=== PATIENT | male | born 1955 | race Caucasian/White ===

== ENCOUNTER 2018-01-07 22:53 | Inpatient (IN) ==
[2018-01-08] MEDS ORDERED: MORPHINE 4 MG/1 ML VIAL IV PRN (02:00)
[2018-01-08] MEDS ORDERED: ONDANSETRON 4 MG/2 ML VIAL IV PRN ×2 (02:00→09:40)
[2018-01-08] MEDS ORDERED: INSULIN REGULAR 100 UNIT/ML SUBCUT SCH (02:28)
[2018-01-08] MEDS ORDERED: DEXTROSE 50% 25 GM/50 ML VIAL IV PRN (02:35)
[2018-01-08] MEDS ORDERED: GLUCAGON 1 MG VIAL IM PRN (02:35)
[2018-01-08] MEDS: SODIUM CHLORIDE 0.9% 1,000 ML IV SCH ×3 (03:07→21:06)
[2018-01-08] MEDS: INSULIN REGULAR 100 UNIT/ML SUBCUT SCH ×5 (03:13→21:06)
[2018-01-08 03:21] LABS: Basophils # 0.1 10*3/uL (0.0-0.2); Basophils % 0.6 % (0.0-0.8); Eosinophils # 0.1 10*3/uL (0.0-0.87); Eosinophils % 0.7 % (0.00-10.9); Hematocrit 33.5 VOL% (42.0-52.0); Hemoglobin 11.4 GM/DL (14.0-18.0); Immature Granulocytes % 0.4 %; Immature Granulocytes Absolute 0.07 #; Lymphocytes # 2.4 10*3/uL (1.4-4.0); Lymphocytes % 14.7 % (21.2-54.2); Mean Corpuscular Hemoglobin 28 PG (27-34); Mean Corpuscular Volume 81.7 FL (87-102); Mean Platelet Volume 9.3 FL (9.6-12.0); Monocytes # 1.3 10*3/uL (0.11-0.8); Monocytes % 7.7 % (1.7-12.7); Neutrophils # 12.4 10*3/uL (1.4-7.4); Neutrophils % 75.9 % (38.7-73.9); Platelet Count 515 T/CUMM (130-400); Red Cell Distribution Width 13.1 % (9.3-17.3); White Blood Count 16.3 T/CUMM (4-12)
[2018-01-08 03:39] LABS: Albumin 2.5 G/DL (3.4-5.0); Calcium 9.2 MG/DL (8.5-10.1); Osmolality,Calculated 273.8 MOS/KG (273-304); Potassium 4.1 MMOL/L (3.5-5.1)
[2018-01-08 03:50] LABS: Calcium 8.9 MG/DL (8.5-10.1); Osmolality,Calculated 274.7 MOS/KG (273-304); Potassium 3.7 MMOL/L (3.5-5.1)
[2018-01-08] MEDS ORDERED: VANCOMYCIN INJ 1,000 MG in SODIUM CHLORIDE 0.9% 250 ML IV ONE (04:00)
[2018-01-08] MEDS ORDERED: MAGNESIUM SULF RIDER 2 GM in PREMIX 1 EACH IV ONE (07:32)
[2018-01-08 09:00] LABS: Alanine Aminotransferase 10 U/L (16-61); Albumin 2.4 G/DL (3.4-5.0); Alkaline Phosphatase 102 U/L (45-117); Aspartate Amino Transferase 4 U/L (0-37); Bilirubin,Total < 0.39 MG/DL (0.2-1.0); Blood Urea Nitrogen 22 MG/DL (7-18); Calcium 8.9 MG/DL (8.5-10.1); Glucose 133 MG/DL (74-106); Osmolality,Calculated 272.2 MOS/KG (273-304); Potassium 3.8 MMOL/L (3.5-5.1); Sodium 134 MMOL/L (136-145); Total Protein 7.3 G/DL (6.4-8.3)
[2018-01-08] MEDS ORDERED: PANTOPRAZOLE 40 MG TABLET PO SCH (09:00)
[2018-01-08 09:30] LABS: Apearance,Urine CLEAR (Clear); Bilirubin,Urine Negative (Negative); Blood, Urine Negative (Negative); Glucose,Urine (UA) >=500 mg/dL (Negative); Hyaline Casts,Urine 1 /LPF (0-3); Ketones,Urine Negative (Negative); Mucus,Urine Occasional /LPF (Occasional); Nitrite,Urine Negative (Negative); Protein,Urine 30 MG/DL; RBC,Urine <1 /HPF (0-4); Urine Color Yellow (Yellow); Urine Specific Gravity 1.015 (1.001-1.035); Urine Urobilinogen < 2.0 EU/DL (0.2-1.0); WBC,Urine 1 /HPF (0-6)
[2018-01-08] MEDS ORDERED: PROMETHAZINE INJ 25 MG in SODIUM CHLORIDE 0.9% 50 ML IV PRN (09:40)
[2018-01-08] MEDS ORDERED: MORPHINE 10 MG/1 ML VIAL IV PRN (09:40)
[2018-01-08] MEDS ORDERED: MEPERIDINE 25 MG/1 ML VIAL IV PRN (09:40)
[2018-01-08] MEDS ORDERED: diphenhydrAMINE 50 MG/1 ML VIAL IV PRN (09:40)
[2018-01-08] MEDS ORDERED: BUPIVACAINE MPF 0.25% 30 ML VIAL ONE (10:12)
[2018-01-08] MEDS ORDERED: LIDOCAINE 1% 20 ML VIAL ONE (10:12)
[2018-01-08] MEDS: ENOXAPARIN 40 MG/0.4 ML SYRINGE SUBCUT SCH (10:18)
[2018-01-08] MEDS ORDERED: SEVOFLURANE 1 UNIT/15 MINUTE INH ONE (11:12)
[2018-01-08] MEDS ORDERED: PROPOFOL 200 MG/20 ML VIAL IV ONE (11:12)
[2018-01-08] MEDS ORDERED: fentaNYL 100 MCG/2 ML VIAL ONE (11:12)
[2018-01-08] MEDS ORDERED: PHENYLEPHRINE 1 MG/10 ML SYRINGE IV ONE (11:13)
[2018-01-08] MEDS ORDERED: ONDANSETRON 4 MG/2 ML VIAL ONE (11:13)
[2018-01-08] MEDS ORDERED: MIDAZOLAM 2 MG/2 ML VIAL ONE (11:13)
[2018-01-08] MEDS: VANCOMYCIN INJ 1,000 MG in SODIUM CHLORIDE 0.9% 250 ML IV SCH (16:53)
[2018-01-08] MEDS: glipiZIDE 5 MG TABLET PO SCH (16:56)
[2018-01-08] MEDS: ATENOLOL 50 MG TABLET PO SCH (21:05)
[2018-01-08] MEDS: INSULIN GLARGINE 100 UNIT/ML SUBCUT SCH (21:06)
[2018-01-09] MEDS: SODIUM CHLORIDE 0.9% 1,000 ML IV SCH ×3 (03:49→17:45)
[2018-01-09] MEDS: VANCOMYCIN INJ 1,000 MG in SODIUM CHLORIDE 0.9% 250 ML IV SCH ×2 (03:51→16:31)
[2018-01-09 07:23] LABS: Basophils # 0.1 10*3/uL (0.0-0.2); Eosinophils # 0.4 10*3/uL (0.0-0.87); Eosinophils % 3.5 % (0.00-10.9); Hematocrit 31.7 VOL% (42.0-52.0); Hemoglobin 10.2 GM/DL (14.0-18.0); Immature Granulocytes % 0.3 %; Immature Granulocytes Absolute 0.04 #; Lymphocytes # 2.7 10*3/uL (1.4-4.0); Lymphocytes % 22.9 % (21.2-54.2); Mean Corpuscular HGB Conc 32.2 GM/DL (32-36); Mean Corpuscular Hemoglobin 28 PG (27-34); Mean Corpuscular Volume 85.4 FL (87-102); Mean Platelet Volume 9.2 FL (9.6-12.0); Monocytes # 1.2 10*3/uL (0.11-0.8); Monocytes % 9.9 % (1.7-12.7); Neutrophils # 7.2 10*3/uL (1.4-7.4); Neutrophils % 62.4 % (38.7-73.9); Platelet Count 499 T/CUMM (130-400); Red Blood Count 3.71 MC/CUMM (3.8-5.5); Red Cell Distribution Width 13.1 % (9.3-17.3); White Blood Count 11.6 T/CUMM (4-12)
[2018-01-09 08:03] LABS: Alanine Aminotransferase 11 U/L (16-61); Alkaline Phosphatase 94 U/L (45-117); Aspartate Amino Transferase 7 U/L (0-37); Bilirubin,Total < 0.39 MG/DL (0.2-1.0); Blood Urea Nitrogen 20 MG/DL (7-18); Calcium 8.6 MG/DL (8.5-10.1); Glucose 88 MG/DL (74-106); Osmolality,Calculated 276.7 MOS/KG (273-304); Sodium 138 MMOL/L (136-145); Total Protein 6.5 G/DL (6.4-8.3)
[2018-01-09] MEDS: glipiZIDE 5 MG TABLET PO SCH ×2 (10:29→16:33)
[2018-01-09] MEDS: ATENOLOL 50 MG TABLET PO SCH ×2 (10:30→21:28)
[2018-01-09] MEDS: amLODIPine 5 MG TABLET PO SCH (10:30)
[2018-01-09] MEDS: ENOXAPARIN 40 MG/0.4 ML SYRINGE SUBCUT SCH (10:30)
[2018-01-09] MEDS: INSULIN REGULAR 100 UNIT/ML SUBCUT SCH ×4 (11:19→22:59)
[2018-01-09] MEDS: NICOTINE 21 MG/24 HR PATCH TRANSDERM SCH (14:42)
[2018-01-09] MEDS: COLLAGENASE OINT 30 GM TUBE TOP SCH (15:30)
[2018-01-09] MEDS: INSULIN GLARGINE 100 UNIT/ML SUBCUT SCH (21:28)
[2018-01-10] MEDS: SODIUM CHLORIDE 0.9% 1,000 ML IV SCH (03:02)
[2018-01-10] MEDS: VANCOMYCIN INJ 1,000 MG in SODIUM CHLORIDE 0.9% 250 ML IV SCH (04:22)
[2018-01-10] MEDS: ENOXAPARIN 40 MG/0.4 ML SYRINGE SUBCUT SCH (08:49)
[2018-01-10] MEDS: NICOTINE 21 MG/24 HR PATCH TRANSDERM SCH (08:49)
[2018-01-10] MEDS: glipiZIDE 5 MG TABLET PO SCH (08:49)
[2018-01-10] MEDS: INSULIN REGULAR 100 UNIT/ML SUBCUT SCH ×2 (08:49→11:34)
[2018-01-10] MEDS: amLODIPine 5 MG TABLET PO SCH (08:49)
[2018-01-10] MEDS: ATENOLOL 50 MG TABLET PO SCH (08:49)
[2018-01-10] MEDS: COLLAGENASE OINT 30 GM TUBE TOP SCH (08:50)
[2018-01-10 12:20] VITALS: BP 133/73
== END 2018-01-10 16:36 | disposition home health service (06) | DRG 617 ==
LOC: N.5E 01-08 00:19 → SUATTDRO 01-08 00:19
PROVIDERS: ADMIT Internal Medicine; ATTEND Internal Medicine

== ENCOUNTER 2018-05-19 17:16 | Inpatient (IN) ==
[2018-05-19] MEDS ORDERED: PNEUMOCOCCAL VACCINE (23 VALENT) 0.5 ML VIAL IM ONE (22:49)
[2018-05-19] MEDS ORDERED: MAGNESIUM SULF RIDER 4 GM in PREMIX 1 EACH IV PRN (23:00)
[2018-05-19] MEDS ORDERED: GLUCAGON 1 MG VIAL IM PRN ×2 (23:00)
[2018-05-19] MEDS ORDERED: MAGNESIUM SULF RIDER 2 GM in PREMIX 1 EACH IV PRN (23:00)
[2018-05-19] MEDS ORDERED: DEXTROSE 50% 25 GM/50 ML VIAL IV PRN ×2 (23:00)
[2018-05-19] MEDS ORDERED: ACETAMINOPHEN 325 MG TABLET PO PRN (23:00)
[2018-05-19] MEDS ORDERED: traMADol 50 MG TABLET PO PRN (23:14)
[2018-05-19] MEDS ORDERED: GABAPENTIN 300 MG CAPSULE PO PRN (23:14)
[2018-05-20 07:38] LABS: Albumin 2.4 G/DL (3.4-5.0); Bilirubin,Total 0.7 MG/DL (0.2-1.0); Calcium 8.6 MG/DL (8.5-10.1); Ferritin 25.3 ng/ml (26-388); Osmolality,Calculated 273.8 MOS/KG (273-304); Potassium 3.8 MMOL/L (3.5-5.1); Total Protein 6.2 G/DL (6.4-8.3)
[2018-05-20 07:45] LABS: Folate 11.8 NG/ML (5.4-24.0); Vitamin B12 227 PG/ML (211-911)
[2018-05-20 07:46] LABS: B-Type Natriuretic Peptide 636 PG/ML (2-100)
[2018-05-20 08:20] LABS: Basophils # 0.1 10*3/uL (0.0-0.2); Basophils % 1.1 % (0.0-0.8); Eosinophils # 0.7 10*3/uL (0.0-0.87); Eosinophils % 7.5 % (0.00-10.9); Hematocrit 21.6 VOL% (42.0-52.0); Hemoglobin 6.8 GM/DL (14.0-18.0); Immature Granulocytes % 0.3 %; Immature Granulocytes Absolute 0.03 #; Lymphocytes # 2.5 10*3/uL (1.4-4.0); Lymphocytes % 25.9 % (21.2-54.2); Mean Corpuscular HGB Conc 31.5 GM/DL (32-36); Mean Corpuscular Hemoglobin 26 PG (27-34); Mean Corpuscular Volume 83.1 FL (87-102); Mean Platelet Volume 9.3 FL (9.6-12.0); Monocytes % 10.3 % (1.7-12.7); Neutrophils # 5.3 10*3/uL (1.4-7.4); Neutrophils % 54.9 % (38.7-73.9); Platelet Count 490 T/CUMM (130-400); Red Cell Distribution Width 16.3 % (9.3-17.3); White Blood Count 9.7 T/CUMM (4-12)
[2018-05-20] MEDS: INSULIN REGULAR 100 UNIT/ML SUBCUT SCH ×4 (08:35→21:35)
[2018-05-20] MEDS: ATENOLOL 50 MG TABLET PO SCH ×2 (08:36→21:35)
[2018-05-20] MEDS: amLODIPine 5 MG TABLET PO SCH (08:36)
[2018-05-20] MEDS: LISINOPRIL 20 MG TABLET PO SCH (08:36)
[2018-05-20] MEDS: FUROSEMIDE 40 MG/4 ML VIAL IV SCH ×2 (08:39→17:32)
[2018-05-20] MEDS: ASPIRIN CHEW 81 MG TABLET PO SCH (08:39)
[2018-05-20] MEDS: NICOTINE 21 MG/24 HR PATCH TRANSDERM SCH (08:40)
[2018-05-20] MEDS: PANTOPRAZOLE 40 MG TABLET PO SCH (08:46)
[2018-05-20] MEDS ORDERED: GLUCAGON 1 MG VIAL IM PRN (10:29)
[2018-05-20] MEDS ORDERED: DEXTROSE 50% 25 GM/50 ML VIAL IV PRN (10:29)
[2018-05-20 10:31] LABS: Sedimentation Rate-Westergren 97 MM/HR (0-20)
[2018-05-20] MEDS: ENOXAPARIN 40 MG/0.4 ML SYRINGE SUBCUT SCH (10:41)
[2018-05-20] MEDS ORDERED: SODIUM CHLORIDE 0.9% 1,000 ML IV PRN (10:51)
[2018-05-20] MEDS: COLLAGENASE OINT 30 GM TUBE TOP SCH (16:29)
[2018-05-20] MEDS: ROSUVASTATIN 20 MG TABLET PO SCH (21:35)
[2018-05-20 22:18] LABS: Hematocrit 27.9 VOL% (42.0-52.0); Hemoglobin 8.8 GM/DL (14.0-18.0)
[2018-05-21 05:43] LABS: % Iron Saturation 4.4 % (18-50)
[2018-05-21 05:45] LABS: Risk Ratio 4.39
[2018-05-21 07:43] LABS: Basophils # 0.1 10*3/uL (0.0-0.2); Basophils % 1.2 % (0.0-0.8); Eosinophils # 0.6 10*3/uL (0.0-0.87); Eosinophils % 6.2 % (0.00-10.9); Hematocrit 28.6 VOL% (42.0-52.0); Hemoglobin 8.9 GM/DL (14.0-18.0); Immature Granulocytes % 0.3 %; Immature Granulocytes Absolute 0.03 #; Lymphocytes # 1.8 10*3/uL (1.4-4.0); Lymphocytes % 18.4 % (21.2-54.2); Mean Corpuscular HGB Conc 31.1 GM/DL (32-36); Mean Corpuscular Hemoglobin 26 PG (27-34); Mean Corpuscular Volume 84.6 FL (87-102); Mean Platelet Volume 9.1 FL (9.6-12.0); Monocytes # 1.3 10*3/uL (0.11-0.8); Monocytes % 12.6 % (1.7-12.7); Neutrophils # 6.1 10*3/uL (1.4-7.4); Neutrophils % 61.3 % (38.7-73.9); Platelet Count 464 T/CUMM (130-400); Red Blood Count 3.38 MC/CUMM (3.8-5.5); Red Cell Distribution Width 15.5 % (9.3-17.3); White Blood Count 9.9 T/CUMM (4-12)
[2018-05-21 08:16] LABS: Calcium 8.5 MG/DL (8.5-10.1); Potassium 3.5 MMOL/L (3.5-5.1)
[2018-05-21] MEDS: NICOTINE 21 MG/24 HR PATCH TRANSDERM SCH (08:45)
[2018-05-21] MEDS: PANTOPRAZOLE 40 MG TABLET PO SCH (08:46)
[2018-05-21] MEDS: LISINOPRIL 20 MG TABLET PO SCH (08:46)
[2018-05-21] MEDS: ASPIRIN CHEW 81 MG TABLET PO SCH (08:46)
[2018-05-21] MEDS: amLODIPine 5 MG TABLET PO SCH (08:47)
[2018-05-21] MEDS: ATENOLOL 50 MG TABLET PO SCH ×2 (08:47→21:34)
[2018-05-21] MEDS: INSULIN REGULAR 100 UNIT/ML SUBCUT SCH ×4 (08:48→21:41)
[2018-05-21] MEDS: ENOXAPARIN 40 MG/0.4 ML SYRINGE SUBCUT SCH (08:50)
[2018-05-21] MEDS: FUROSEMIDE 40 MG/4 ML VIAL IV SCH ×2 (08:50→15:50)
[2018-05-21] MEDS: COLLAGENASE OINT 30 GM TUBE TOP SCH (08:54)
[2018-05-21] MEDS ORDERED: SODIUM CHLORIDE 0.9% 250 ML IV ONE (15:44)
[2018-05-21] MEDS: ROSUVASTATIN 20 MG TABLET PO SCH (21:33)
[2018-05-22 04:51] LABS: Basophils # 0.1 10*3/uL (0.0-0.2); Basophils % 1.2 % (0.0-0.8); Eosinophils # 0.6 10*3/uL (0.0-0.87); Eosinophils % 6.7 % (0.00-10.9); Hematocrit 27.1 VOL% (42.0-52.0); Hemoglobin 8.2 GM/DL (14.0-18.0); Immature Granulocytes % 0.3 %; Immature Granulocytes Absolute 0.03 #; Lymphocytes # 2.5 10*3/uL (1.4-4.0); Lymphocytes % 27.2 % (21.2-54.2); Mean Corpuscular HGB Conc 30.3 GM/DL (32-36); Mean Corpuscular Hemoglobin 26 PG (27-34); Mean Corpuscular Volume 85.5 FL (87-102); Mean Platelet Volume 9.4 FL (9.6-12.0); Monocytes # 1.2 10*3/uL (0.11-0.8); Monocytes % 13.4 % (1.7-12.7); Neutrophils # 4.6 10*3/uL (1.4-7.4); Neutrophils % 51.2 % (38.7-73.9); Platelet Count 466 T/CUMM (130-400); Red Blood Count 3.17 MC/CUMM (3.8-5.5); Red Cell Distribution Width 15.7 % (9.3-17.3)
[2018-05-22 05:19] LABS: Calcium 8.3 MG/DL (8.5-10.1); Potassium 3.7 MMOL/L (3.5-5.1)
[2018-05-22] MEDS: FUROSEMIDE 40 MG/4 ML VIAL IV SCH ×2 (08:25→15:12)
[2018-05-22] MEDS: amLODIPine 5 MG TABLET PO SCH ×2 (08:26→08:32)
[2018-05-22] MEDS: PANTOPRAZOLE 40 MG TABLET PO SCH (08:26)
[2018-05-22] MEDS: ENOXAPARIN 40 MG/0.4 ML SYRINGE SUBCUT SCH (08:26)
[2018-05-22] MEDS: ASPIRIN CHEW 81 MG TABLET PO SCH (08:26)
[2018-05-22] MEDS: ATENOLOL 50 MG TABLET PO SCH (08:26)
[2018-05-22] MEDS: LISINOPRIL 20 MG TABLET PO SCH ×2 (08:26→08:33)
[2018-05-22] MEDS: INSULIN REGULAR 100 UNIT/ML SUBCUT SCH ×2 (08:26→12:18)
[2018-05-22] MEDS: NICOTINE 21 MG/24 HR PATCH TRANSDERM SCH (08:29)
[2018-05-22] MEDS: COLLAGENASE OINT 30 GM TUBE TOP SCH (08:30)
[2018-05-22] MEDS ORDERED: LISINOPRIL 20 MG TABLET PO SCH (08:39)
[2018-05-22 10:52] LABS: Hemoglobin A1 (Alkaline) 97.3 % (96.5-98.5); Hemoglobin A2 (Alkaline) 2.7 % (1.5-3.5)
[2018-05-22 12:07] VITALS: BP 104/56
== END 2018-05-22 16:22 | disposition home or self-care (01) | DRG 291 ==
LOC: SUATTDRO 22:04 → N.TELES 22:04
PROVIDERS: ADMIT Internal Medicine; ATTEND Internal Medicine